=== PATIENT | female | born 1950 | race Caucasian/White ===

== ENCOUNTER → 2023-11-17 07:16 | Outpatient (REF) | payer MEDICARE, OTHER, SELFPAY ==
[2023-11-17 09:00] LABS: D-Dimer 0.38 ug/mlFEU (0.00-0.50)
== END ==
LOC: REG 07:16
PROVIDERS: ATTENDING PHYSICIAN Nurse Practitioner Adult Health
DX: I26.99 Other pulmonary embolism without acute cor pulmonale (principal); D68.69 Other thrombophilia
CPT/HCPCS: 36415; 85379

== ENCOUNTER → 2024-05-19 14:04 | Outpatient (REF) | payer MEDICARE, OTHER, SELFPAY ==
[2024-05-19 15:39] LABS: % Basophils 0.5 % (0-2); % Eosinophils 0.8 % (0-6); % Immature Granulocytes 0.3 % (0-0.5); % Lymphocytes 33.3 % (20.5-51.1); % Monocytes 9.4 % (1.7-9.3); % Neutrophils 55.7 % (42.2-75.2); Absolute Eosinophils 0.1 10^3/uL (0-0.7); Absolute Monocytes 0.6 10^3/uL (0.1-0.6); Absolute Neutrophils 3.3 10^3/uL (1.4-6.5); Hematocrit 38.2 % (37.0-47.0); Hemoglobin 12.9 g/dL (12.0-16.0); Mean Corp Hgb Conc. 33.8 g/dL (33.0-37.0); Mean Corpuscular Hgb 31.4 pg (27.0-31.0); Mean Corpuscular Volume 92.9 fL (81.0-99.0); Mean Platelet Volume 10.5 fL (7.4-10.4); Nucleated Red Blood Cells % 0 %; Platelet Count 319 10^3/uL (130-400); Red Blood Cell Count 4.11 10^6/uL (4.20-5.40); Red Cell Dist. Width 12.4 % (11.5-14.5)
[2024-05-19 15:59] LABS: Iron 139 ug/dl (37-170)
[2024-05-19 16:09] LABS: Percent Saturation 46 % (20-50); Total Iron Binding Capacity 297 ug/dl (265-497)
[2024-05-19 16:31] LABS: D-Dimer 0.33 ug/mlFEU (0.00-0.50)
[2024-05-19 16:35] LABS: Ferritin 50.3 ng/ml (11.1-264.0)
== END ==
LOC: REG 14:04
PROVIDERS: ATTENDING PHYSICIAN Internal Medicine Hematology & Oncology
DX: I26.99 Other pulmonary embolism without acute cor pulmonale (principal); D68.69 Other thrombophilia; D50.9 Iron deficiency anemia, unspecified
CPT/HCPCS: 36415; 82728; 83540; 83550; 85025; 85379

== ENCOUNTER → 2024-10-22 09:31 | Outpatient (REF) | payer MEDICARE, OTHER, SELFPAY ==
[2024-10-22 11:04] LABS: % Basophils 0.5 % (0-2); % Eosinophils 1.7 % (0-6); % Immature Granulocytes 0.2 % (0-0.5); % Lymphocytes 27.7 % (20.5-51.1); % Neutrophils 60.9 % (42.2-75.2); Absolute Eosinophils 0.1 10^3/uL (0-0.7); Absolute Lymphocytes 1.6 10^3/uL (1.2-3.4); Absolute Monocytes 0.5 10^3/uL (0.1-0.6); Absolute Neutrophils 3.5 10^3/uL (1.4-6.5); Hemoglobin 12.5 g/dL (12.0-16.0); Mean Corp Hgb Conc. 33.8 g/dL (33.0-37.0); Mean Corpuscular Hgb 30.9 pg (27.0-31.0); Mean Corpuscular Volume 91.6 fL (81.0-99.0); Mean Platelet Volume 10.4 fL (7.4-10.4); Nucleated Red Blood Cells % 0 %; Platelet Count 263 10^3/uL (130-400); Red Blood Cell Count 4.04 10^6/uL (4.20-5.40); White Blood Cell Count 5.8 10^3/uL (4.8-10.8)
[2024-10-22 11:13] LABS: D-Dimer 0.28 ug/mlFEU (0.00-0.50)
[2024-10-22 12:20] LABS: ALT (SGPT) 19 U/L (0-35); AST (SGOT) 20 U/L (14-36); Albumin 4.5 g/dl (3.5-5.0); Alkaline Phosphatase 56 U/L (38-126); Blood Urea Nitrogen 14 mg/dl (7-17); Carbon Dioxide 25 mmol/L (22-30); Chloride 110 mmol/L (98-107); Glucose 92 mg/dl (70-99); Iron 70 ug/dl (37-170); Potassium 4.6 mmol/L (3.5-5.1); Sodium 142 mmol/L (135-145); Total Bilirubin 0.6 mg/dl (0.2-1.3); Total Protein 6.8 g/dl (6.3-8.2); eGFR > 60.00
[2024-10-22 12:29] LABS: Percent Saturation 22 % (20-50); Total Iron Binding Capacity 317 ug/dl (265-497)
[2024-10-22 16:15] LABS: Vitamin D, 25-OH*** 24.8 ng/mL (30-80)
[2024-10-22 16:28] LABS: TSH 0.97 uIU/ml (0.47-4.68)
[2024-10-22 16:32] LABS: Ferritin 42.9 ng/ml (11.1-264.0)
== END ==
LOC: REG 09:31
PROVIDERS: ATTENDING PHYSICIAN Family Medicine; FAMILY PHYSICIAN Nurse Practitioner Family; REFERRING PHYSICIAN Internal Medicine Hematology & Oncology
DX: Z00.00 Encounter for general adult medical examination without abnormal findings (principal); Z13.29 Encounter for screening for other suspected endocrine disorder; Z13.220 Encounter for screening for lipoid disorders; I26.99 Other pulmonary embolism without acute cor pulmonale; D68.69 Other thrombophilia; Z79.899 Other long term (current) drug therapy; D50.9 Iron deficiency anemia, unspecified
CPT/HCPCS: 36415; 80053; 82306; 82728; 83540; 83550; 84443; 85025; 85379

== ENCOUNTER 2024-11-15 12:45 | Emergency (ER) | payer MEDICARE, OTHER, SELFPAY ==
[2024-11-15 12:47] VITALS: BP 186/85
[2024-11-15 13:14] LABS: Hematocrit 37.6 % (37.0-47.0); Hemoglobin 12.9 g/dL (12.0-16.0); Mean Corp Hgb Conc. 34.3 g/dL (33.0-37.0); Mean Corpuscular Volume 91.5 fL (81.0-99.0); Nucleated Red Blood Cells % 0 %; Platelet Count 251 10^3/uL (130-400); Red Cell Dist. Width 12.0 % (11.5-14.5)
[2024-11-15 13:38] LABS: ALT (SGPT) 21 U/L (0-35); AST (SGOT) 24 U/L (14-36); Albumin 4.8 g/dl (3.5-5.0); Alkaline Phosphatase 64 U/L (38-126); Blood Urea Nitrogen 13 mg/dl (7-17); Calcium 10.2 mg/dl (8.4-10.2); Carbon Dioxide 22 mmol/L (22-30); Chloride 109 mmol/L (98-107); Glucose 92 mg/dl (70-99); Potassium 4.1 mmol/L (3.5-5.1); Sodium 139 mmol/L (135-145); Total Protein 6.8 g/dl (6.3-8.2); eGFR > 60.00
--- NOTE | 2024-11-15 14:05 | ED.GENMED ---
History of Present Illness
General
Chief Complaint: Flank Pain
Source: patient
Exam Limitations: none
Time Seen by Provider: 11/15/24 13:58
History of Present Illness
History of Present Illness:
74yoF with a history of pulmonary embolism on Eliquis presenting with her son-in-law for evaluation of flank pain. Patient started with left flank pain yesterday. She initially thought she may have pulled a muscle. Pain became severe today and is
coming in waves. She also reports nausea and had 4 episodes of vomiting throughout the day today. Patient is unable to stand up straight due to her pain. It is a 10/10 in severity at its worst. She believes she has a kidney stone. Patient has
tried Tylenol without relief. She denies any fevers, dysuria, hematuria, chest pain, shortness of breath, trauma.
Past History
Past History
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
ED Past Surgical History: Appendectomy and Cholecystectomy
Patient has exhibited threatening behavior?: No
Social History
Tobacco: Former smoker
Alcohol: None
Drug: None
Personal: Single
Employment: Employed
Family History
Family History: Other
Phy Exam
Physical Exam
Physical Exam:
Patient actively vomiting on exam
General Physical Exam
General Presentation: moderate distress
General Skin: warm and dry
General Habitus: normal
General Mental: alert
ENT Exam
ENT Exam: normocephalic
Pulmonary Exam
Pulmonary Exam: lungs clear, no respiratory distress, no rales, no crackles, no rhonchi and no wheezing
Gastrointestinal Exam
Gastrointestinal Exam: non tender, soft, non distended and no cva tenderness
Neurological Exam
Neurological Exam: alert
Jabari Coma Scale
Eye Opening: Spontaneous
Verbal Response: Oriented
Motor Response: Obeys Commands
GCS Total Score: 15
Skin Exam
Skin Exam: normal color and warm/dry
Psychiatric Exam
Psychiatric Exam: normal mood/affect
Course
Orders/Labs/Results
Orders:
Orders
11/15/24 12:57
Complete Blood Count/With Diff Urgent
Comprehensive Metabolic Panel Urgent
11/15/24 14:04
0.9% Sodium Chloride 1000 ml [Nss] 1,000 ml IV BOLUS
HYDROmorphone [Dilaudid] 0.5 mg IV NOW STA
Ondansetron Injectable [Zofran] 4 mg IV NOW STA
11/15/24 14:05
CT Abd/pel Without Iv Or Oral Urgent
Comment:
Reason For Exam: L flank pain
11/15/24 14:18
Urine Reflex Culture from UA [Urinalysis Reflex To Culture] Urgent
Date Specimen was Collected: 11/15/24
Time Specimen was Collected: 12:51
11/15/24 15:17
HYDROmorphone [Dilaudid] 0.5 mg IV NOW STA
11/15/24 16:21
Acetaminophen 1000MG/100Ml [Ofirmev] 1,000 mg in 100 ml IV ONCE
Acetaminophen IV Indication:: ED Narcotic Naive Pt-ONCE
HYDROmorphone [Dilaudid] 1 mg IV NOW STA
Ketorolac [Toradol] 15 mg IV NOW STA
Abnormal Lab Results
11/15/24 11/15/24
12:57 14:18
WBC 4.4 L 10^3/uL
(4.8-10.8)
RBC 4.11 L 10^6/uL
(4.20-5.40)
MCH 31.4 H pg
(27.0-31.0)
Chloride 109 H mmol/L
(98-107)
Urine Ketones 1+ A
(Negative)
11/15/24 12:57
11/15/24 12:57
Vital Signs
Initial and Last Documented VS:
Initial Vital Signs
Temp Pulse Resp BP Pulse Ox
98.0 F 68 20 186/85 99
11/15/24 12:47 11/15/24 12:47 11/15/24 12:47 11/15/24 12:47 11/15/24 12:47
Last Documented Vital Signs
Temp Pulse Resp BP Pulse Ox
98.0 F 68 20 134/60 95
11/15/24 12:47 11/15/24 12:47 11/15/24 12:47 11/15/24 18:00 11/15/24 17:45
MDM/Problems Addressed
Differential Diagnosis Includes:
74yoF here with atraumatic L flank pain x 1 day. Associated with n/v. She is hypertensive otherwise stable vital signs. Patient appears uncomfortable on exam and just finished vomiting. No abdominal or CVA tenderness noted. Differential
diagnosis includes but is not limited to: Kidney stone, pyelonephritis, musculoskeletal, consider AAA although less likely given that symptoms have been present for 24 hours
Initial ED plan: Lab work obtained in triage which are unremarkable. Renal function within normal limits. Will check UA and CT abdomen without contrast. IV Dilaudid, Zofran, and fluid bolus for symptoms.
*Pulse Oximetry
SaO2: 99
Oxygen Mode of Delivery: Room air
Patient hypoxic: no (99%)
*Critical Care Note
Total Time (30-74mins, 75-104mins- exclusive of procedures): Not Applicable
Update Note
Update Note:
UA bland without hematuria or signs of infection. CT is negative for acute findings. Specifically, there is no hydronephrosis or ureterolithiasis. No evidence of abdominal aneurysm or free fluid. 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
although she reports that her pain is better with flexion of the hip. Patient received 2 rounds of Dilaudid without improvement and was ultimately given IV Toradol and Ofirmev. On reassessment after 3rd round of pain medication, she is feeling much
better and rates her pain as a 0/10 in severity. She reports moving much her back much easier. Unclear etiology of symptoms, ?musculoskeletal vs. passed stone. No indication for hospitalization. Prescription provided for Robaxin and supportive care
discussed. Advised f/u with PCP within 24 hours and ED return precautions reviewed.
ED Attending Note
-
Portions of this chart may have been created with voice recognition software.� Occasional wrong word or��sound alike� substitutions may have occurred due to the inherent limitations of voice recognition software.
Discharge Plan
Departure
Patient Disposition: Home (Routine Discharge)
Date of Disposition: 11/15/24
Time of Disposition: 18:41
Patient with high blood pressure during this ER visit?: No
Discharge Problem:
Left flank pain
Instructions: Flank Pain (DC)
Prescriptions:
New
methocarbamol 500 mg tablet
500 mg PO Q8H PRN (Reason: muscle spasms) Qty: 14 0RF
No Action
B-complex with vitamin C 1 CAPLET tablet
1 cap PO DAILY
polyvinyl alcohol-povidon(PF) [Refresh Classic (PF)] 10 DROPS dropperette
1 drops OPHTHALMIC QIDPRN PRN (Reason: DRY EYE)
multivitamin with folic acid [Tab-A-Ky] 1 TABLET tablet
1 tab PO DAILY
ga-[id number]-lhh-epa-fish oil-vit D3 [[place]-3 Plus Vitamin D3] 1 EACH capsule
1 ea PO BID
Floradix
1 dose PO DAILY
doxycycline hyclate 100 MG capsule
100 mg PO Q12 Qty: 28 0RF
cephalexin 500 MG capsule
500 mg PO QID Qty: 56 0RF
mupirocin 1 APPLIC ointment
1 applic topical TID Qty: 1 0RF
apixaban [Eliquis DVT-PE Treat 30D Start] 5 MG tablets,dose pack
5 - 10 mg PO DIRECTED Qty: 1 0RF
acetaminophen-codeine 1 TABLET tablet
1 tab PO Q4HPRN PRN (Reason: pain) Qty: 14 0RF
doxycycline hyclate 100 MG capsule
100 mg PO Q12 14 Days Qty: 28 0RF
Referrals:
Corine Black DO [Family Provider, Family Practice]
Activity Restrictions/Additional Instructions:
Apply heat to affected area. Take Tylenol 650mg every 6 hours as needed. Take Robaxin (muscle relaxer) as needed for spasms.
Please follow-up with your family doctor tomorrow. Return to the ER with any new or worsening symptoms.
Interventions
Interventions:
*Risk Screen - Suicide Last Done: 11/15/24 14:18
*General Assessment Last Done: 11/15/24 12:47
*Neglect/Abuse Screening Last Done: 11/15/24 14:18
*ED- Fall Risk Assessment Last Done: 11/15/24 14:18
*ED COVID-19 Vaccine History Last Done: 11/15/24 14:18
*Nursing Disposition Last Done: 11/15/24 18:56
NS-Iczjbo-Rvklvneuxz Assessment Last Done: 11/15/24 14:18
ED-Female Genitourinary Assessment Last Done: 11/15/24 14:18
Discharge Date and Time
Discharge Date/Time: 11/15/24 18:57
Print Language: POLISH
[2024-11-15 14:18] VITALS: BMI 24.9
[2024-11-15] MEDS: NSS 1000 IV (14:28)
[2024-11-15] MEDS: DILAUDID 0.5 MG IV ×2 (14:28→15:23)
[2024-11-15] MEDS: ZOFRAN 4 MG IV (14:28)
[2024-11-15 15:26] LABS: Urine Character Clear (Clear)
[2024-11-15 15:49] VITALS: BP 138/63
[2024-11-15] MEDS: OFIRMEV 100 IV (16:41)
[2024-11-15] MEDS: DILAUDID 1 MG IV (16:41)
[2024-11-15] MEDS: TORADOL 15 MG IV (16:41)
[2024-11-15 17:25] VITALS: BP 135/50
[2024-11-15 18:00] VITALS: BP 134/60
== END 2024-11-15 18:57 | disposition home or self-care (01) ==
LOC: EMR 12:45
PROVIDERS: Emergency Medicine; EMERGENCY PHYSICIAN Emergency Medicine; FAMILY PHYSICIAN Family Medicine
DX: M16.12 Unilateral primary osteoarthritis, left hip (principal); R11.2 Nausea with vomiting, unspecified; H34.9 Unspecified retinal vascular occlusion; Z86.711 Personal history of pulmonary embolism; Z87.891 Personal history of nicotine dependence; Z79.01 Long term (current) use of anticoagulants; Z90.49 Acquired absence of other specified parts of digestive tract; Z88.5 Allergy status to narcotic agent; Z91.048 Other nonmedicinal substance allergy status
CPT/HCPCS: 99284; 96374; 96375 ×3; 96361; 96376 ×2; 74176; 80053; 81003; 85025

== ENCOUNTER 2024-12-08 15:13 | Outpatient (RCR) | payer MEDICARE, OTHER, SELFPAY | END 2024-12-08 23:59 | disposition home or self-care (01) | LOC: RPT 15:13 | PROVIDERS: ATTENDING PHYSICIAN Nurse Practitioner Family | DX: M54.16 Radiculopathy, lumbar region (principal); Z73.6 Limitation of activities due to disability; M62.81 Muscle weakness (generalized); R29.6 Repeated falls | CPT/HCPCS: 97110; 97163 ==

== ENCOUNTER 2024-12-29 15:12 | Outpatient (RCR) | payer MEDICARE, OTHER, SELFPAY | END 2024-12-29 23:59 | disposition home or self-care (01) | LOC: RPT 15:12 | PROVIDERS: ATTENDING PHYSICIAN Nurse Practitioner Family | DX: M54.16 Radiculopathy, lumbar region (principal); Z73.6 Limitation of activities due to disability; M62.81 Muscle weakness (generalized); M25.552 Pain in left hip; G89.29 Other chronic pain; R29.6 Repeated falls | CPT/HCPCS: 97110; 97530 ==

== ENCOUNTER → 2025-02-08 18:35 | Outpatient (REF) | payer MEDICARE, OTHER, SELFPAY | LOC: MRI 3T 18:35 | PROVIDERS: ATTENDING PHYSICIAN Physician Assistant; FAMILY PHYSICIAN Nurse Practitioner Family | DX: M54.16 Radiculopathy, lumbar region (principal) | CPT/HCPCS: 72148 ==

== ENCOUNTER → 2025-02-18 15:47 | Outpatient (REF) | payer MEDICARE, OTHER, SELFPAY | LOC: WDC 15:47 | PROVIDERS: ATTENDING PHYSICIAN Family Medicine | DX: Z12.31 Encounter for screening mammogram for malignant neoplasm of breast (principal) | CPT/HCPCS: 77063; 77067 ==

== ENCOUNTER → 2025-03-25 14:13 | Outpatient (REF) | payer MEDICARE, OTHER, SELFPAY ==
[2025-03-25 16:18] LABS: Hematocrit 37.4 % (37.0-47.0); Hemoglobin 12.5 g/dL (12.0-16.0); Mean Corp Hgb Conc. 33.4 g/dL (33.0-37.0); Mean Corpuscular Volume 95.2 fL (81.0-99.0); Nucleated Red Blood Cells % 0 %; Platelet Count 262 10^3/uL (130-400); Red Cell Dist. Width 12.5 % (11.5-14.5)
[2025-03-25 16:25] LABS: D-Dimer 0.54 ug/mlFEU (0.00-0.50)
== END ==
LOC: REG 14:13
PROVIDERS: ATTENDING PHYSICIAN Internal Medicine Hematology & Oncology; FAMILY PHYSICIAN Nurse Practitioner Family
DX: I26.99 Other pulmonary embolism without acute cor pulmonale (principal); D68.69 Other thrombophilia
CPT/HCPCS: 36415; 85025; 85379